=== PATIENT | male | born 1950 | race Caucasian/White ===

== ENCOUNTER 2016-12-23 16:45 | Emergency (ER) | payer OTHER ==
[~2016-12-23] VITALS: Ht 167.6 cm; Wt 97.3 kg
[~2016-12-23 16:45] MED LIST: NO MEDS
[2016-12-23 17:35] LABS: EOSINOPHIL (%) 0 % (0-5); HEMATOCRIT 41.6 % (38.0-50.0); IMMATURE GRANULOCYTE (%) 0.2 % (0.0-0.7); IMMATURE GRANULOCYTE COUNT 0.2 K/uL; LYMPHOCYTE COUNT 0.6 K/uL (1.0-2.8); MCH 31.1 PG (29.0-34.0); MCHC 35.1 G/DL (30.0-36.0); MCV 88.7 FL (86-99); MEAN PLAT.VOLUME 9.7 uM^3 (9.0-12.4); MONOCYTE (%) 4.2 % (3-12); MONOCYTE COUNT 0.5 K/uL (0-0.8); NEUTROPHIL (%) 90.1 % (45-76); NEUTROPHIL COUNT 10.2 K/uL (1.8-6.4); PLATELET COUNT 192 K/uL (156-360); RBC DIS.WIDTH-CV 13.1 % (11.8-14.6); RBC DIS.WIDTH-SD 41.9 % (39-53); RED BLOOD COUNT 4.69 M/uL (4.00-5.50); WHITE BLOOD COUNT 11.3 K/uL (4.1-10.2)
[2016-12-23 17:46] LABS: CHLORIDE 104 mEq/L (99-109); SODIUM 139 mEq/L (136-147)
[2016-12-23 17:48] LABS: GLUCOSE 145 mg/dL (70-99)
[2016-12-23 17:49] LABS: ANION GAP 12 MEQ/L (2-14)
[2016-12-23 17:51] LABS: TOTAL BILIRUBIN 0.7 mg/dL (0.0-1.0)
[2016-12-23 17:52] LABS: ALKALINE PHOSPHATASE 86 IU/L (3-129); GFR ESTIMATE (CALCULATED) > 59 mL/min/
[2016-12-23 17:53] LABS: UREA NITROGEN (BUN) 14 mg/dL (9-23)
[2016-12-23 17:56] LABS: TROP-I INTERPRETATION NEGATIVE; TROPONIN-I < 0.01 ng/mL (0.0-0.30)
[2016-12-23 18:20] LABS: INTERNAL CONTROL VALID? YES; MONOSPOT (MONONUCLEOSIS SEROL) NEGATIVE
[2016-12-23 18:34] LABS: INFLUENZA A VIRAL ANTIGEN POSITIVE; INFLUENZA B VIRAL ANTIGEN NEGATIVE
[2016-12-23] MEDS ORDERED: ZITHROMAX500 MG PO (19:37)
[2016-12-23] MEDS ORDERED: MEDROL DOSEPAK4 MG PO (19:37)
[2016-12-23] MEDS ORDERED: PROAIR HFA8.5 GM IH (19:37)
[2016-12-23] MEDS ORDERED: CEFTIN500 MG PO (19:37)
[2016-12-23] MEDS ORDERED: TAMIFLU75 MG PO (19:37)
[2016-12-23 21:28] VITALS: BP 106/61
== END 2016-12-23 21:37 | disposition left against medical advice (07) ==
LOC: EME 16:45
PROVIDERS: Emergency Medicine
DX: J10.1 Influenza due to other identified influenza virus with other respiratory manifestations (principal); J44.1 Chronic obstructive pulmonary disease with (acute) exacerbation; F17.200 Nicotine dependence, unspecified, uncomplicated
CPT/HCPCS: 71010; 80053; 83605; 83880; 84484; 85025; 86308; 87040; 87502; 94640; 99281; 99285; J0456; J0696; J1100; J7030; J7050